=== PATIENT | female | born 1960 | race Caucasian/White ===

== ENCOUNTER 2022-01-03 08:51 | Outpatient (RCR) | payer BC | END 2022-01-07 | LOC: PT 08:51 | PROVIDERS: ATTEND Specialist | DX: M16.12 Unilateral primary osteoarthritis, left hip (principal); M25.552 Pain in left hip; M70.62 Trochanteric bursitis, left hip; M62.81 Muscle weakness (generalized); R26.2 Difficulty in walking, not elsewhere classified ==

== ENCOUNTER 2022-01-09 07:52 | Outpatient (RCR) | payer BC | END 2022-02-06 | LOC: PT 07:52 | PROVIDERS: ATTEND Specialist | DX: M70.62 Trochanteric bursitis, left hip (principal); M25.552 Pain in left hip; M62.81 Muscle weakness (generalized); R26.2 Difficulty in walking, not elsewhere classified ==